=== PATIENT | female | born 1980 | race Caucasian/White ===

== ENCOUNTER 2023-05-20 11:25 | Emergency (ER) | payer MEDICAID, OTHER, SELFPAY ==
[2023-05-20 11:27] VITALS: BP 129/86; PULSE 78; RESP 14; TEMP 36.4; O2SAT 98; BMI 25.0
--- NOTE | 2023-05-20 12:22 | ED.VIS.GI ---
HPI HPI - GI History of Present Illness Chief Complaint: GI Bleed Informant: patient Abdominal Pain/Flank Pain Worsened by: Nothing Relieved by: Nothing Nausea/Vomiting/Emesis GI Symptom: Negative for Nausea or Vomiting Diarrhea/Melena/Hematochezia GI Symptom: Positive for Hematochezia; Negative for Diarrhea or Melena Stool Quality: Positive for [place] and BRB per rectum Associated Symptoms Associated Symptoms: Negative for Dysuria, Frequency or Hematuria Narrative Narrative: Patient presents with rectal bleeding that has been constant for the past 4 weeks. Patient states that it is dark red and bright red at times. Patient states it has been constant. Patient denies any nausea or vomiting. Patient denies any abdominal pain or rectal pain. Patient denies any dysuria, frequency, or hematuria. Patient denies any abnormal vaginal bleeding or discharge. Patient states she did not want anything to be put up there to look at it which is why she waited 4 weeks before she was seen for this. [facility] Medical History (Updated 05/20/23 @ 13:[address] Jose Ovalle DO) Hypothyroidism Home Medications hydrocortisone acetate 25 mg rectal suppository (Anusol-HC) 25 mg MD DAILY #12 ea 05/20/23 [Rx Last Taken Unknown] Allergy/AdvReac Type Severity Reaction Status Date / Time soy AdvReac Vomiting Verified 05/20/23 11:27 wheat AdvReac BRAIN FOG Verified 05/20/23 11:27 Surgical History (Updated 05/20/23 @ 12:[address] Jose Ovalle DO) History of tonsillectomy S/P ORIF (open reduction internal fixation) fracture Social History Smoking Status: Never smoker ROS ROS ED Constitutional Constitutional ED: Denies chills or fever(s) Eyes Eyes: Denies blurry vision or change in vision ENT ENT ED: Denies rhinorrhea or sore throat Cardiovascular Cardiovascular: Denies chest pain or palpitations Respiratory/Chest Respiratory/Chest: Reports dyspnea; Denies cough Gastrointestinal Gastrointestinal: Denies nausea or vomiting Genitourinary Genitourinary ED: Denies dysuria or hematuria Musculoskeletal Musculoskeletal: Denies back pain or neck pain Integumentary Denies abscess or rash Neurologic Neurologic: Denies headache(s) or weakness Allergic/Immunologic Allergic/Immunologic ED: Denies mouth swelling or urticaria EXAM Physical Exam Const Vital Signs: 05/20/23 11:27 05/20/23 12:40 Temperature 97.5 F L Temperature Source Temporal Pulse Rate 78 75 Respiratory Rate 14 16 Blood Pressure 129/86 H 114/77 Blood Pressure Mean 100 89 Pulse Ox 98 99 Oxygen Delivery Method Room Air Room Air Positive well nourished and well developed General Appearance ED: well developed and NAD HEENT Reports moist mucous membranes Neck supple and no JVD Resp normal respiratory effort and clear to auscultation bilaterally Cardio regular rate and regular rhythm GI non-tender and non-distended Palpation: soft Extremity full ROM General Extremety ED: Negative for edema or tenderness General Extremity: Negative for edema Neuro CN's II-XII intact bilaterally, moves all extremities and no sensory deficits noted Sensorium / Orientation: alert Motor Exam: strength 5/5 throughout Psych mental status grossly normal and thought process normal Skin no wounds MDM MDM MDM Narrative Medical decision making narrative: Differential diagnosis includes hemorrhoids, lower gastrointestinal bleeding, anal fissure, coagulopathy, and vaginal bleeding. CBC will be obtained to assess for anemia and leukocytosis. Basic metabolic profile will be obtained to assess for electrolyte abnormality and renal function. Urinalysis will be obtained to assess for urinary tract infection and hematuria. PT was INR and PTT will be obtained to assess for coagulopathy. Lab Data Attestation: I reviewed the patient's lab results. Lab results narrative: CBC was reviewed and was within normal limits. Basic metabolic profile was reviewed. Potassium was slightly low at 3.3. Urinalysis was reviewed. Leukocyte esterase was 500 with 5-10 white blood cells. There is no bacteria seen. Labs: Laboratory Results - last 24 hr 05/20/23 05/20/23 12:40 12:45 WBC 7.5 RBC 4.67 Hgb 14.1 Hct 41.9 MCV 89.7 MCH 30.2 MCHC 33.7 RDW Std Deviation 39.8 RDW Coeff of [place] 12.2 Plt Count 261 MPV 9.7 Immature Gran % (Auto) 0.400 Neut % (Auto) 68.4 Lymph % (Auto) 21.8 [place] % (Auto) 6.8 Eos % (Auto) 2.1 Baso % (Auto) 0.5 Absolute Neuts (auto) 5.2 Absolute Lymphs (auto) 1.64 Nucleated RBC % 0 Sodium 141 Potassium 3.3 L Chloride 109 H Carbon Dioxide 30.0 Anion Gap 2 L BUN 16 Creatinine 0.81 Estim Creat Clear Calc 74.84 Est GFR (MDRD) Af Amer 100 Est GFR (MDRD) Non-Af 83 BUN/Creatinine Ratio 19.9 Glucose 82 Calcium 8.6 Urine Color Yellow Urine Clarity Sl. Cloudy Urine pH 6.0 Ur Specific [place] 1.025 Urine Protein 15 H Urine Glucose (UA) Normal Urine Ketones Negative Urine Occult Blood 10 H Urine Nitrite Negative Urine Bilirubin Negative Urine Urobilinogen Normal Ur Leukocyte Esterase 500 H Urine RBC 0 SEEN Urine WBC 5-10 SEEN Ur Squamous Epith Cells 0-5 SEEN Urine Bacteria 0 SEEN Urine Mucus 0 SEEN Additional Tests and Interventions Additional Tests or Interventions: Urine culture was ordered. Treatment and Re-Evaluation :: Anoscopy was performed. There is an internal hemorrhoid noted. There is no active bleeding noted. Patient was advised of her findings. Patient states she is not sure if she wants a suppository for her internal hemorrhoids. Patient was given a prescription for Anusol HC. This was printed and given to the patient. She states that if she feels like she needs that she will take it to the pharmacy to get it filled. Patient was instructed to follow-up with her primary care physician in 5 to 7 days. Patient was instructed to return if worse in any way. Patient understood and was agreeable with the plan. All questions were answered. Discharge Plan Triage Chief Complaint: GI Bleed ED Provider: Jose Ovalle Dx/Rx/DC Orders Clinical Impression: Internal hemorrhoid, Lower gastrointestinal bleeding Instructions: ED Hemorrhoids, ED Lower GI Bleeding (Stable) Prescriptions: New hydrocortisone acetate [Anusol-HC] 25 mg suppository 25 mg MD DAILY Qty: 12 0RF Primary Care Provider: Care Physician,No Primary Referrals: Care Physician,No Primary [Primary Care Provider] - Disposition Disposition: Home, Self Care
[2023-05-20 12:40] VITALS: BP 114/77; PULSE 75; RESP 16; O2SAT 99
[2023-05-20 12:57] LABS: Bacteria 0 SEEN /hpf (None Seen); Mucous, Urine 0 SEEN /hpf (<or=2+); Red Blood Cells-Urine 0 SEEN /hpf (0-5)
[2023-05-20 13:00] LABS: Absolute Lymphocyte Count 1.64 X10^3/uL (0.83-4.51); Absolute Neutrophil Count 5.2 X10^3/uL (2.0-7.7); Basophil# 0.04 X10^3/uL; Basophil% 0.5 % (0-1); Eosinophil# 0.16 X10^3/uL; Eosinophils% 2.1 % (0-5); Hematocrit 41.9 % (37-47); Hemoglobin 14.1 g/dL (12.0-15.0); Lymphocyte # 1.64 X10^3/ul (0.83-4.51); Lymphocyte % 21.8 % (19-41); Mean Corp Hgb Conc 33.7 g/dL (32-36); Mean Corpuscular Hgb 30.2 pg (27.0-32.0); Mean Corpuscular Volume 89.7 fL (81-99); Mean Platelet Vol. 9.7 fl (6.2-12.0); Monocyte# 0.51 X10^3/uL; Monocyte% 6.8 % (0-10); NRBC Flagged by Analyzer 0 % (0-5); Neutrophil # 5.15 X10^3/uL (2.7-7.7); Neutrophil % 68.4 % (47-70); Platelet Count 261 K/mm3 (150-450); RBC Distribution Width CV 12.2 % (11.6-14.6); RBC Distribution Width SD 39.8 fl (35.1-43.9); Red Blood Count 4.67 M/mm3 (4.2-5.4); White Blood Count 7.5 K/mm3 (4.4-11.0)
[2023-05-20 13:02] LABS: Color, Urine Yellow (Yellow); Glucose, Dipstick Normal (Normal); Ketone-Dipstick Negative (Negative); Leukocyte Esterase-Dipstick 500 /ul (Negative); Nitrite-Dipstick Negative (Negative); Occult Blood-Urine 10 /ul (Negative); Protein-Dipstick 15 mg/dl (Negative); Specific Gravity, Urine 1.025 (1.002-1.030); Urine Bilirubin Dipstick Negative (Negative); Urine Clarity Sl. Cloudy (Clear); Urine Urobilinogen Normal (Normal)
[2023-05-20 13:16] LABS: Squamous Epithelial Cells - UA 0-5 SEEN /hpf (5-10)
[2023-05-20 13:16] LABS: Anion Gap 2 (5-15); BUN 16 mg/dL (7-18); BUN/Creat Ratio 19.9 RATIO (10-20); Calcium,Total 8.6 mg/dL (8.5-10.1); Chloride 109 mmol/L (98-107); Creatinine, Serum 0.81 mg/dL (0.55-1.02); EST Glomerular Filtration Rate 83 mL/min (>60); Est Glom Filt Rate - Afr Amer 100 mL/min (>60); Estimated Creatinine Clearance 74.84 ml/min; Glucose 82 mg/dL (74-106); Potassium 3.3 mmol/L (3.5-5.1); Sodium Level 141 mmol/L (136-145)
[2023-05-20 13:17] LABS: White Blood Cells 5-10 SEEN /hpf (0-5)
== END 2023-05-20 13:55 | disposition home or self-care (01) ==
PROVIDERS: Emergency Provider Emergency Medicine; Visit Provider Emergency Medicine
DX: K64.8 Other hemorrhoids (principal); K92.2 Gastrointestinal hemorrhage, unspecified
CPT/HCPCS: 46600; 80048; 81001; 82274; 85025; 87086; 87088; 99283